=== PATIENT | male | born 2000 | race Caucasian/White ===

== ENCOUNTER 2024-11-03 19:20 | Inpatient (IN) ==
[2024-11-03 20:10] LABS: Basophils # (auto) 0.03 K/uL (0.00-0.20); Basophils % (auto) 0.2 %; Eosinophils # (auto) 0.05 K/uL (0.00-0.50); Eosinophils % (auto) 0.3 %; Hematocrit (blood only) 39.8 % (42.0-52.0); Hemoglobin 13.4 g/dl (14.0-18.0); Immature Granulocytes # (auto) 0.09 K/uL (0.01-0.20); Immature Granulocytes % (auto) 0.6 %; Lymphocytes # (auto) 1.37 K/uL (1.20-3.40); Lymphocytes % (auto) 9.1 %; Mean Corpuscular Hemoglobin 28.7 pg (25.0-34.0); Mean Corpuscular Hgb Conc 33.7 g/dL (32.0-36.0); Mean Corpuscular Volume 85.2 fL (80.0-100.0); Mean Platelet Volume 11.3 fL (9.4-12.4); Monocytes # (auto) 0.98 K/uL (0.11-0.59); Monocytes % (auto) 6.5 %; Neutrophils # (auto) 12.52 K/uL (1.40-6.50); Neutrophils % (auto) 83.3 %; Platelet Count 158 K/uL (130-400); Red Blood Count 4.67 M/uL (4.70-6.10); White Blood Count 15.04 K/ul (4.8-10.8)
[2024-11-03 20:25] LABS: Alanine Aminotransferase 10 U/L (7-52); Albumin Globulin Ratio 1.5 (0.9-2); Albumin Level 4.3 gm/dl (3.4-5.0); Alkaline Phosphatase 60 U/L (34-104); Anion Gap 8 (3-11); Aspartate Aminotransferase 15 U/L (13-39); BUN Creatinine Ratio 12.9 (10-20); Bilirubin,Total 1.1 mg/dl (0.2-1.0); Blood Urea Nitrogen 16 mg/dl (6-23); Calcium 9.3 mg/dl (8.6-10.3); Carbon Dioxide 25 mmol/L (21-32); Chloride 100 mmol/L (98-107); Globulin 2.9 gm/dl (2.5-4.0); Glucose 133 mg/dl (70-99(Fasting)); Potassium 3.4 mmol/L (3.5-5.1); Sodium 133 mmol/L (136-145); Total Protein 7.2 gm/dl (6.0-8.3)
[2024-11-03] MEDS ORDERED: VANCOMYCIN HCL 1,750 MG in SODIUM CHLORIDE 0.9% 500 ML IV ONE (21:26)
[2024-11-03] MEDS ORDERED: VANCOMYCIN CONSULT ACTIVE PRN (21:26)
[2024-11-03 21:32] LABS: Creatine Kinase 147 U/L (30-223)
[2024-11-03] MEDS: SODIUM CHLORIDE 0.9% 1,000 ML IV ONE ×2 (21:37→22:37)
[2024-11-03] MEDS: ACETAMINOPHEN 500 MG TAB PO STA (21:37)
[2024-11-03] MEDS: KETOROLAC TROMETHAMINE 15 MG/ML VIAL IV STA (21:37)
--- NOTE | 2024-11-03 21:50 | History & Physical Report ---
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 He stated he noticed bilateral lower extremity edema, redness, and pain that began yesterday at 4 PM. He is being admitted for bilateral lower extremity cellulitis and sepsis. #sepsis/cellulitis BL LE cellulitis WBC 15.04, tachycardic (126), febrile (38.4C) on admission Procal 13.70 lactate negative MAP stable trend procal Blood cultures pending Tylenol and Toradol for pain Vancomycin in ED; transition to Rocephin and daptomycin on admission - no history of MRSA, however with sepsis with cover for - no risk factors for pseudomonas coverage Fluids: Sepsis fluid bolus for ideal body weight = 2590.80 - Sepsis fluid bolus of 1L given in ED - will give additional 1.75L on admission continue gentle IVF resuscitation with NSS at 80 ml/hr overnight after fluid bolus UA and UDS ordered #electrolyte abnormalities 2/2 decreased po intake and increased activity no rhabdomyolysis (CK negative, no transaminitis) NA 133 K+ 3.4 Mag ordered on admission; will replete if low 40 mEq K+ p.o. 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 He stated he noticed bilateral lower extremity edema, redness, and pain that began yesterday at 4 PM. He is being admitted for bilateral lower extremity cellulitis and sepsis. Patient seen at bedside. He stated he was standing all weekend at [employer], barely ate or drink anything, did not wear compression stockings. Yesterday around 4 PM he noticed his bilateral lower extremities were extremely red and slightly painful. He said laying down they are not painful but he has difficulty with ambulation. He has never had anything similar. He stated none of his friends around him have anything similar. However noted in ED, roommate was also at [employer], had very similar symptoms. He stated he also has felt tired. Patient denies fever, chills, dizziness, lightheadedness, sore throat, dyspnea, dyspnea on exertion, chest pain, abdominal pain, nausea, vomiting, diarrhea. He denies significant past medical history, no asthma, DM, previous VTE. He does use nicotine products, oral pouches, would like nicotine patch. He denies daily alcohol use, only drinks alcohol on the weekends. He denies any illicit drug use. 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. He does not take any home medications regularly. He wishes to be full code. Allergies Allergy/AdvReac Type Severity Reaction Status Date / Time No Known Allergies Allergy Unverified 11/03/24 22:24 Home Medications Medication Instructions Recorded Confirmed Type No Known Home Medications 11/03/24 11/03/24 History Past Med/Surg History Problem List (Updated 11/04/24 @ 19:25 by Narda Mcrae DO) Bilateral lower leg cellulitis (Acute) Sepsis (Acute) Anemia Nicotine abuse Hypokalemia Hyponatremia Cellulitis Sepsis Peritonsillar abscess Family History (Updated 07/03/23 @ 16:07 by Cristina Naranjo MA) Grandfather Hypertension Father Allergies Social History (Updated 07/03/23 @ 16:07 by Cristina Naranjo MA) Smoking Status: Never smoker Tobacco Type: Smokeless Tobacco (Dip or Chew) Cigarettes Per Day: Nicotine Patches; Hx Alcohol Use: Yes Alcohol Intake Frequency: 2-3 x/Week Hx Substance Use: No Preferred Language: Upper Sorbian Communication Ability: Effective Vocational Counselor Required: No Beliefs That Will Affect Care: None Current Living Situation: Other Current Living Situation Comment: college roomates Other Information That Helps Us Care for You: No Feels Safe at Home: Yes Safety Concerns: Feels Safe At This Time Assistive Devices: None Review of Systems Review of Systems: see HPI Physical Exam Physical Exam: The patient is awake, alert and oriented 3, well developed and well nourished, normocephalic and atraumatic, in no acute distress. Non-toxic appearing. HEENT- EOMI, mucous membranes moist. Hearing grossly intact. Heart-normal S1 and S2. No murmurs, rubs or gallops. Lungs-clear bilaterally, no respiratory distress, no accessory muscle use. Abdomen-normal bowel sounds and soft. No ascites noted. Non-tender. Psychiatric-normal affect. Skin: BL LE with erythema from feet to knees. Warm to touch. No open wounds, no drainage. Border not well demarcated however attempted to huong with marker on admission. Results & Data Results & Data Vital Signs (Past 12 Hours) Vital Signs Temp Pulse Resp BP Pulse Ox O2 Del Method 11/03/24 20:18 113 H 11/03/24 19:42 38.4 C H 129 H 20 109/62 96 Room Air Laboratory Results reviewed CBC, CMP, Pro-True ordered mag, lactate, UA, UDS, MRSA nare swab on admission Diagnostic Findings none ordered Medications Administered ED1L NSS bolus, vancomycin IV, Tylenol 1000 Mg p.o., Toradol 15 Mg IV Admission1.75 mL NSS bolus, Rocephin 2G IV, potassium chloride 40 mEq p.o., NicoDerm patch ECG Additional Comments: ordered Code Status & VTE Plan Code Status full code VTE Prophylaxis Plan VTE Prophylaxis will be ordered: Yes Supervising Physician Co-Signing Physician Notes Attending addendum: I have physically seen this patient, have supervised the APOLINAR's activities, and agree with the H&P unless as otherwise noted. Assessment and Plan: The patient is a 24-year-old male [employer] student, who had attended following over the previous weekend. With no significant past medical history. He presents to the emergency department with bilateral lower extremity edema, redness and pain that began yesterday at about 4 PM. He denies any direct sick exposures., And has never had any previous symptomatology. He has presented to the [facility] hospitalist service for bilateral extremity cellulitis and sepsis. Bilateral lower extremity cellulitis/sepsis- Unclear etiology at this time Initially given vancomycin in ED Will place on daptomycin IV and ceftriaxone IV as noted Status post 1 L normal saline in the ED, and will give additional 1.75 mL IV fluids in the ED as noted Follow blood culture and sensitivity Follow urine culture sensitivity Following serial laboratories CBC with differential, chemistry profile Supportive treatment with Tylenol, and Toradol Pro-True 13 has noted Remaining orders and notations as noted PG Care Time/CCT Total # of Minutes Spent Total Time Spent with Patient: Total time spent is greater than 50% in coordination of care (as documented) at patient's floor/unit and/or counseling patient: Coding Level of Care Code 07922 INT INP/OBS CARE 375MIN Diagnoses Sepsis A41.9 Cellulitis L03.90 Hyponatremia E87.1 Hypokalemia E87.6 Nicotine abuse Z72.0 Anemia D64.9
[2024-11-03] MEDS: Patient's ALLERGY Info needs ENTERED STA (22:27)
[2024-11-03 22:28] LABS: Magnesium 1.9 mg/dl (1.7-2.4)
[2024-11-03] MEDS ORDERED: ONDANSETRON INJ 2 MG/ML 2 ML VIAL IV PRN (22:32)
[2024-11-03] MEDS ORDERED: KETOROLAC TROMETHAMINE 15 MG/ML VIAL IV PRN (22:32)
[2024-11-03] MEDS: cefTRIAXone SODIUM 2,000 MG/50 ML BAG IV SCH (22:45)
[2024-11-03] MEDS: SODIUM CHLORIDE 0.9% 500 ML IV ONE (22:46)
[2024-11-03] MEDS: POTASSIUM CHLORIDE CRTAB 20 MEQ TABCR PO STA (22:47)
[2024-11-03] MEDS: NICOTINE 7 MG/24 HR TDSY TD SCH (23:06)
[2024-11-03] MEDS: SODIUM CHLORIDE 0.9% 250 ML IV ONE (23:09)
[2024-11-03] MEDS: DAPTOmycin 500 MG in SYRINGE 0 ML IV SCH (23:09)
[2024-11-04] MEDS: SODIUM CHLORIDE 0.9% 1,000 ML IV SCH (01:11)
--- NOTE | 2024-11-04 01:38 | Emergency Department Note ---
Impression & Plan Sepsis, Bilateral lower leg cellulitis Admit to the [facility] ED Provider Note NAME: ARTHUR TAYLOR AGE: 24 SEX: Male INFORMANT: Patient ED PROVIDER(S): Narda Mcrae DO CHIEF COMPLAINT: Pain and swelling to both lower extremities PLAN: Disposition: admit to the [facility]. MEDICAL DECISION MAKING: This is a 24-year-old male patient brought to the emergency department by friends with swelling in both lower extremities and red streaking up the legs that is quite painful. Patient had been standing at [employer] for more than 46 hours. When he returned home, he noted that his legs were extremely red, swollen and painful. Patient became more concerned when he developed fever. By protocol, laboratory studies were drawn and revealed a white count of 15,000. The patient was tachycardic and febrile. The patient appeared quite dehydrated on physical exam. He was bolused with a liter of normal saline solution. I did add on laboratory studies to perform a septic protocol including blood cultures, lactate and procalcitonin. Patient was given Tylenol for his fever. He was medicated with IV vancomycin for significant lower extremity cellulitis with lymphangitic spread. The procalcitonin came back significantly elevated consistent with sepsis. I had already discussed the case with the [facility]ist and they had ordered 30 mL/kg crystalloid for the patient to treat for sepsis. The patient remained hemodynamically stable. Patient was given IV Toradol for the pain. Care/management discussed with: vending manager and [facility] Triage Nursing notes: reviewed and agree with them. Vital Signs: reviewed and remarkable for tachycardia and fever Differential Diagnosis: Superficial thrombophlebitis, sepsis, DVT, cellulitis Diagnostics, independently interpreted by me: ECG: Sinus tachycardia at a rate of 116 with T wave inversion in the inferior leads most likely secondary to rate. There is no obvious signs of ischemia. Cardiac Monitoring: Sinus tachycardia at a rate of 112 HPI: 24 year old Male arrives for evaluation of lower extremity pain and swelling. Patient had been standing for more than 46 hours at [place] over the weekend at the [employer]. Upon arriving at home, he noted significant redness, pain and swelling in his legs. He then developed a fever and streaking up his legs. PAST MEDICAL HISTORY: See Below, PAST SURGICAL HISTORY: See Below, SOCIAL HISTORY: See Below, HOME MEDICATIONS: See list ALLERGIES: None VITALS: See Below PHYSICAL EXAMINATION: HEENT: Head - normocephalic and atraumatic Pupils are equal, round, and reactive to light. Extraocular eye muscles are intact, and sclera are anicteric. Nose - moist nasal mucosa without discharge. Mouth - moist buccal mucosa. Oropharynx is nonerythematous and there is no tonsillar exudate or edema noted. Neck: Supple; no JVD, nuchal rigidity, cervical lymphadenopathy, or auscultated bruits. Heart: Tachycardic rate and rhythm. There is a normal S1 and S2 with no murmurs, clicks, or gallops appreciated. Lungs: Clear to auscultation bilaterally with no wheezes, rales, or rhonchi. Abdomen: Soft, completely nontender, nondistended, with good bowel sounds. There are no palpable pulsatile masses or hepatosplenomegaly. There is no guarding, rigidity, or rebound noted. Extremities: Significant cellulitis of the lower extremities with edema and lymphangitic spread up both lower legs to the mid thigh. There are easily palpable peripheral pulses. Skin: Hot and dry with good turgor and no rashes. Emergency department treatment: cosmetician, IV normal saline bolus, IV Toradol, oral Tylenol, IV vancomycin Emergency Department course: The patient was evaluated in room A-11. A complete history and physical was performed. Labs were performed by protocol. Patient was given a dose of oral Tylenol for his fever. Patient was bolused with IV normal saline solution. A septic protocol was added. Patient was given a dose of IV Toradol for his pain. Patient was given IV vancomycin for what was presumed to be significant lower extremity cellulitis. I discussed the case with the [facility] Hospitalist and they will evaluate for further care. I have personally spent greater than 50 minutes of critical care time in the direct management of this patient. This includes bedside care, interpretation of diagnostic studies, and testing, discussion with consultants, patient, and family members, and other required patient management activities. This 50 minutes is in excess of all separately billable procedures. Past Med/Surg History Problem List (Updated 11/04/24 @ 19:25 by Narda Mcrae DO) Bilateral lower leg cellulitis (Acute) Sepsis (Acute) Anemia Nicotine abuse Hypokalemia Hyponatremia Cellulitis Sepsis Peritonsillar abscess Family History (Updated 07/03/23 @ 16:07 by Cristina Naranjo MA) Grandfather Hypertension Father Allergies Social History (Updated 07/03/23 @ 16:07 by Cristina Naranjo MA) Smoking Status: Never smoker Tobacco Type: Smokeless Tobacco (Dip or Chew) Cigarettes Per Day: Nicotine Patches; Hx Alcohol Use: Yes Alcohol Intake Frequency: 2-3 x/Week Hx Substance Use: No Preferred Language: Maldivian Communication Ability: Effective Primary Care Pediatrician Required: No Beliefs That Will Affect Care: None Current Living Situation: Other Current Living Situation Comment: [facility] roomates Other Information That Helps Us Care for You: No Feels Safe at Home: Yes Safety Concerns: Feels Safe At This Time Assistive Devices: None Allergies Allergies Allergy/AdvReac Type Severity Reaction Status Date / Time No Known Allergies Allergy Unverified 11/03/24 22:24 Home Meds Home Medications Medication Instructions Recorded Confirmed No Known Home Medications 11/03/24 11/03/24 Results & Data (ED) Vital Signs Vital Signs - 24 hr 11/03/24 19:42 11/03/24 20:17 11/03/24 20:18 Temperature 38.4 C H Temperature Source Temporal Artery Scan Pulse Rate 129 H 113 H Respiratory Rate 20 Respiratory Effort / Characteristics Non-Labored Respiratory Depth Normal Blood Pressure 109/62 133/80 Blood Pressure Mean 77 91 Pulse Oximetry 96 Oxygen Delivery Method Room Air Sepsis Recent Fever Within 48 Hours No Sepsis New/Unexplained Change in Mental Status No Sepsis Action Taken by Nursing Physician Notified 11/03/24 20:30 11/03/24 20:42 11/03/24 20:57 Temperature Temperature Source Pulse Rate 111 H 105 H Respiratory Rate 33 H 21 Respiratory Effort / Characteristics Respiratory Depth Blood Pressure 122/73 Blood Pressure Mean 85 Pulse Oximetry Oxygen Delivery Method Sepsis Recent Fever Within 48 Hours Sepsis New/Unexplained Change in Mental Status Sepsis Action Taken by Nursing 11/03/24 21:30 11/03/24 21:42 11/03/24 21:45 Temperature Temperature Source Pulse Rate 98 H 98 H Respiratory Rate 24 24 Respiratory Effort / Characteristics Respiratory Depth Blood Pressure 117/62 Blood Pressure Mean 69 Pulse Oximetry Oxygen Delivery Method Sepsis Recent Fever Within 48 Hours Sepsis New/Unexplained Change in Mental Status Sepsis Action Taken by Nursing 11/03/24 22:01 Temperature Temperature Source Pulse Rate Respiratory Rate Respiratory Effort / Characteristics Respiratory Depth Blood Pressure 148/68 H Blood Pressure Mean 94 Pulse Oximetry Oxygen Delivery Method Sepsis Recent Fever Within 48 Hours Sepsis New/Unexplained Change in Mental Status Sepsis Action Taken by Nursing Laboratory Data 11/04/24 03:27 11/04/24 03:27 Lab Results 11/03/24 Range/Units 19:55 WBC 15.04 H (4.8-10.8) K/ul RBC 4.67 L (4.70-6.10) M/uL Hgb 13.4 L (14.0-18.0) g/dl Hct 39.8 L (42.0-52.0) % MCV 85.2 (80.0-100.0) fL MCH 28.7 (25.0-34.0) pg MCHC 33.7 (32.0-36.0) g/dL RDW Std Deviation 40.0 (36.4-46.3) fL RDW Coeff of Lucy 13.0 (11.5-14.5) % Plt Count 158 (130-400) K/uL MPV 11.3 (9.4-12.4) fL Immature Gran % (Auto) 0.6 % Neut % (Auto) 83.3 % Lymph % (Auto) 9.1 % [place] % (Auto) 6.5 % Eos % (Auto) 0.3 % Baso % (Auto) 0.2 % Neut # (Auto) 12.52 H (1.40-6.50) K/uL Lymph # (Auto) 1.37 (1.20-3.40) K/uL [place] # (Auto) 0.98 H (0.11-0.59) K/uL Eos # (Auto) 0.05 (0.00-0.50) K/uL Baso # (Auto) 0.03 (0.00-0.20) K/uL Immature Gran # (Auto) 0.09 (0.01-0.20) K/uL Sodium 133 L (136-145) mmol/L Potassium 3.4 L (3.5-5.1) mmol/L Chloride 100 (98-107) mmol/L Carbon Dioxide 25 (21-32) mmol/L Anion Gap 8 (3-11) BUN 16 (6-23) mg/dl Creatinine 1.24 (0.6-1.4) mg/dl Est Cr Clr Drug Dosing Not Reportable eGFR 84.30 BUN/Creatinine Ratio 12.9 (10-20) Glucose 133 H (70-99(Fasting)) mg/dl Calcium 9.3 (8.6-10.3) mg/dl Magnesium 1.9 (1.7-2.4) mg/dl Total Bilirubin 1.1 H (0.2-1.0) mg/dl AST 15 (13-39) U/L ALT 10 (7-52) U/L Alkaline Phosphatase 60 (34-104) U/L Total Creatine Kinase 147 (30-223) U/L Total Protein 7.2 (6.0-8.3) gm/dl Albumin 4.3 (3.4-5.0) gm/dl Globulin 2.9 (2.5-4.0) gm/dl Albumin/Globulin Ratio 1.5 (0.9-2) Procalcitonin 13.70 H (0-0.5) ng/ml Administered Medications Acetaminophen (Acetaminophen 325 Mg Tab) 650 mg PO Q4H PRN PRN Reason: Pain or Fever Stop: 12/03/24 22:31 Last Admin: 11/04/24 08:45 Dose: 650 mg Documented By: CHINO Cefazolin Sodium (Ancef 1000mg) 1,000 mg in 7.5 mls @ 2.5 mls/min IV Q8H [facility] Stop: 11/11/24 15:59 Last Admin: 11/04/24 16:39 Dose: 2.5 mls/min Documented By: JAKY Miscellaneous (Remove Nicoderm Patch) 1 each N/A DAILY@0859 [facility] Stop: 12/04/24 08:58 Last Admin: 11/04/24 08:42 Dose: 1 each Documented By: CHINO Nicotine (Nicotine 7 Mg/24 Hr Tdsy) 1 patch TD DAILY [facility] Stop: 12/03/24 22:09 Last Admin: 11/04/24 08:42 Dose: 1 patch Documented By: Admin: 11/03/24 23:06 Dose: 1 patch Documented By: MATI Discontinued Medications Acetaminophen (Acetaminophen 500 Mg Tab) 1,000 mg PO NOW STA Stop: 11/03/24 21:16 Last Admin: 11/03/24 21:37 Dose: 1,000 mg Documented By: MATI Sodium Chloride (Nss) 1,000 mls @ 999 mls/hr IV .Q1H1M ONE Stop: 11/03/24 22:15 Last Infusion: 11/03/24 22:27 Dose: Infused Documented By: Admin: 11/03/24 21:37 Dose: 999 mls/hr Documented By: MATI Sodium Chloride (Nss) 1,000 mls @ 999 mls/hr IV .Q1H1M ONE Stop: 11/03/24 23:07 Last Infusion: 11/04/24 00:45 Dose: Infused Documented By: Admin: 11/03/24 22:37 Dose: 999 mls/hr Documented By: MATI Sodium Chloride (Nss) 500 mls @ 999 mls/hr IV .Q31M ONE Stop: 11/03/24 22:37 Last Infusion: 11/03/24 23:14 Dose: Infused Documented By: Admin: 11/03/24 22:46 Dose: 999 mls/hr Documented By: MATI Ceftriaxone Sodium (Rocephin) 2,000 mg in 50 mls @ 100 mls/hr IV Q24H [facility] Stop: 11/10/24 22:14 Last Infusion: 11/03/24 23:14 Dose: Infused Documented By: Admin: 11/03/24 22:45 Dose: 100 mls/hr Documented By: MATI Sodium Chloride (Nss) 250 mls @ 999 mls/hr IV .Q16M ONE Stop: 11/03/24 22:35 Last Infusion: 11/03/24 23:34 Dose: Infused Documented By: Admin: 11/03/24 23:09 Dose: 999 mls/hr Documented By: MATI Daptomycin 500 mg/ Syringe 10 mls @ 5 mls/min IV Q24H [facility]; Protocol Stop: 11/10/24 22:31 Last Admin: 11/03/24 23:09 Dose: 5 mls/min Documented By: MATI Sodium Chloride (Nss) 1,000 mls @ 80 mls/hr IV .[id number] [facility] Stop: 11/04/24 12:59 Last Infusion: 11/04/24 13:48 Dose: Infused Documented By: Lisha Admin: 11/04/24 01:11 Dose: 80 mls/hr Documented By: KMS Ketorolac Tromethamine (Ketorolac Tromethamine 15 Mg/Ml Vial) 15 mg IV NOW STA Stop: 11/03/24 21:16 Last Admin: 11/03/24 21:37 Dose: 15 mg Documented By: MATI Miscellaneous Information (Patient's Allergy Info Needs Entered) 1 each N/A NOW STA Stop: 11/03/24 22:15 Last Admin: 11/03/24 22:27 Dose: 1 each Documented By: MATI Potassium Chloride (Potassium Chloride Crtab 20 Meq Tabcr) 40 meq PO NOW STA Stop: 11/03/24 22:08 Last Admin: 11/03/24 22:47 Dose: 40 meq Documented By: MATI Discharge Plan Visit Data Chief Complaint: Swelling/Edema to Extremity Stated Complaint: SWELLING IN LEGS ED Provider: Narda Mcrae Discharge Problem: Sepsis, Bilateral lower leg cellulitis Patient Disposition: Admitted As Inpatient Discharge Instructions Interventions: ED Discharge Assessment Last Done: 11/03/24 22:33
[2024-11-04 03:48] LABS: Basophils # (auto) 0.02 K/uL (0.00-0.20); Basophils % (auto) 0.2 %; Eosinophils # (auto) 0.15 K/uL (0.00-0.50); Eosinophils % (auto) 1.8 %; Hematocrit (blood only) 34.8 % (42.0-52.0); Hemoglobin 11.4 g/dl (14.0-18.0); Immature Granulocytes # (auto) 0.04 K/uL (0.01-0.20); Immature Granulocytes % (auto) 0.5 %; Lymphocytes # (auto) 1.33 K/uL (1.20-3.40); Lymphocytes % (auto) 15.6 %; Mean Corpuscular Hemoglobin 28.8 pg (25.0-34.0); Mean Corpuscular Hgb Conc 32.8 g/dL (32.0-36.0); Mean Corpuscular Volume 87.9 fL (80.0-100.0); Mean Platelet Volume 11.1 fL (9.4-12.4); Monocytes # (auto) 0.68 K/uL (0.11-0.59); Neutrophils % (auto) 73.9 %; Platelet Count 125 K/uL (130-400); RDW Coefficient of Variation 12.9 % (11.5-14.5); RDW Standard Deviation 41.9 fL (36.4-46.3); Red Blood Count 3.96 M/uL (4.70-6.10); White Blood Count 8.52 K/ul (4.8-10.8)
[2024-11-04 04:04] LABS: Albumin Globulin Ratio 1.2 (0.9-2); Albumin Level 3.3 gm/dl (3.4-5.0); BUN Creatinine Ratio 12.9 (10-20); Bilirubin,Total 0.6 mg/dl (0.2-1.0); Calcium 7.8 mg/dl (8.6-10.3); Creatinine Clr Calc Pharmacy 116.1 ml/min; Globulin 2.8 gm/dl (2.5-4.0); Magnesium 2.1 mg/dl (1.7-2.4); Potassium 3.8 mmol/L (3.5-5.1); Total Protein 6.1 gm/dl (6.0-8.3)
--- NOTE | 2024-11-04 06:48 | Hospitalist Progress Note ---
Date of Service November 04, 2024 Assessment & Plan (1) Anemia: (2) Nicotine abuse: (3) Hypokalemia: (4) Hyponatremia: (5) Cellulitis: (6) Sepsis: (7) Peritonsillar abscess: Plan (1) Cellulitis -WBC 15.04 >8.52 - Febrile (38.4) on admission - Procal 13.70 >11.80; Trend Procal -Lactate negative -MAP stable -Blood cultures pending -Tylenol and Toradol for pain -Vancomycin in ED; -Stop Ceftriaxone and Daptomycin -Start Cefazolin for Gram Positive Coverage -Hopefully home tomorrow. Will Switch IV Cefazolin to PO. -US Venous B/L Lower Extremity: Negative for Venous Thrombosis (2) Hyponatremia - Resolved - 133>137 (3) Hypokalemia - Resolved -3.4>3.8 (4) Nicotine use -oral zyn pouches daily -nicotine patch ordered (5) Anemia - Hgb: 13.4>11.4 VTE ppx: SCDs Diet: regular Dispo: Med/ Surg with Sepsis Admission and Anticipated Discharge Date Admission Date: November 03, 2024 Supervising Physician Co-Signing Physician Notes I personally examined the patient and verified all bai points of history and exam, discussed case, and agree with decision making with Dr Hook feeling better starting to be able to bear weight vitals noted nad heent nc at mmm breathing unlabored no accessory muscles good effort skin with resolving erythema small areas of bruising where it appears erythema was most dense, minimally tender significantly regressed compared to outlined areas cellulitis w sepsis present on admission - interestingly does appear to have had b/l LE cellulitis - fortunately both sepsis/cellulitis appear resolving quickly. was not severe sepsis/septic shock, MRSA nares negative, no significant risks for resistant bacteria -> narrow abx to 1st gen cephalosporin anticipate ongoing improvement, hopefully home tomorrow Ayanna Serra is a 24 Y O Male previously healthy boy presented to ER yesterday with Bilateral lower extremity edema, redness and pain that began 2 days ago. He was standing at [place] all weekend, barely ate or drink anything, didnot wear compression stockings. He was admitted for bilateral lower extremity cellulitis with sepsis. Ongoing Symptoms: He mentioned pain in bilateral legs is better than yesterday. Patient not able to walk due to pain. Denies chest pain, difficulty in breathing New concerns: No any Review of Systems Review of Systems: As per HPI Physical Exam Constitutional: WD/WN, vitals as above well developed; no acute distress Eyes: PERRL, conjunctivae normal, anicteric sclerae ENMT: external ear and nose normal, oropharynx normal Ears: no hearing impairment Neck: trachea midline, no thyromegaly trachea midline Respiratory: normal respiratory effort, lungs clear to auscultation normal respiratory effort and + respiratory distress; no labored breathing and no retractions Auscultation: lungs clear to auscultation bilaterally Cardiovascular: RRR, no murmur, no edema Rate/Rhythm: regular rate and regular rhythm Chest (Breasts): normal inspection/palpation of breasts Chest: normal inspection of chest Musculoskeletal: Erythema and swelling from knee to feet. Warm to touch. No open wounds, no drainage. Border not well demarcated Results & Data Results & Data Vital Signs (Past 12 Hours) Vital Signs Temp Pulse Pulse Resp BP BP Pulse Ox 11/04/24 06:00 77 11/04/24 04:16 36.9 C 77 18 113/66 96 11/04/24 03:42 71 14 96 11/04/24 03:36 72 21 96 11/04/24 03:34 36.4 C 11/04/24 03:21 80 21 11/04/24 03:12 70 17 11/04/24 03:06 72 17 11/04/24 03:00 109/64 11/04/24 02:48 77 17 11/04/24 02:42 76 15 11/04/24 01:57 81 20 97 11/04/24 01:26 78 17 124/69 98 11/04/24 01:00 71 24 124/69 11/04/24 00:03 74 15 11/04/24 00:00 118/59 L 11/03/24 23:30 80 16 11/03/24 23:18 11/03/24 23:12 76 21 11/03/24 23:00 127/65 11/03/24 22:55 90 11/03/24 22:39 95 H 22 11/03/24 22:31 108/70 11/03/24 22:18 93 H 28 H 11/03/24 22:01 148/68 H 11/03/24 21:45 98 H 24 11/03/24 21:42 98 H 24 11/03/24 21:30 117/62 11/03/24 20:57 105 H 21 11/03/24 20:42 111 H 33 H 11/03/24 20:30 122/73 11/03/24 20:18 113 H 11/03/24 20:17 133/80 11/03/24 19:42 38.4 C H 129 H 20 109/62 96 Pulse Ox O2 Del Method O2 Del Method 11/04/24 06:00 11/04/24 04:16 Room Air 11/04/24 03:42 Room Air 11/04/24 03:36 11/04/24 03:34 11/04/24 03:21 11/04/24 03:12 11/04/24 03:06 11/04/24 03:00 11/04/24 02:48 11/04/24 02:42 11/04/24 01:57 Room Air, Other 11/04/24 01:26 Room Air 11/04/24 01:00 11/04/24 00:03 11/04/24 00:00 11/03/24 23:30 11/03/24 23:18 97 Room Air 11/03/24 23:12 11/03/24 23:00 11/03/24 22:55 11/03/24 22:39 11/03/24 22:31 11/03/24 22:18 11/03/24 22:01 11/03/24 21:45 11/03/24 21:42 11/03/24 21:30 11/03/24 20:57 11/03/24 20:42 11/03/24 20:30 11/03/24 20:18 11/03/24 20:17 11/03/24 19:42 Room Air
[2024-11-04] MEDS: ACETAMINOPHEN 325 MG TAB PO PRN (08:45)
[2024-11-04 11:35] LABS: Appearance Urine Clear (Clear); Bacteria Urine Automated None Seen (None Seen); Bilirubin Urine Negative (Negative); Blood Urine Negative (Negative); Cast Urine Automated 0-2 /lpf (0-2); Color Urine Dark Yellow; Epithelial Cell Urine Auto 0-2 /hpf (0-2); Glucose Urine UA Negative (Negative); Ketones Urine 2+ (Negative); Leukocyte Esterase Urine Negative (Negative); Nitrite Urine Negative (Negative); Protein Urine 1+ (Negative); RBC Urine Automated 0-2 /hpf (0-2); Specific Gravity Urine 1.034 (1.000-1.030); Urobilinogen Urine Negative (Negative); WBC Urine Automated 0-5 /hpf (0-5)
[2024-11-04 13:32] LABS: Amphetamines+Metham, Urine Neg (Neg); Barbiturates, Urine Neg (Neg); Benzodiazepine, Urine Neg (Neg); Cocaine, Urine Neg (Neg); Fentanyl, Urine Neg (Neg); MDMA (Ecstacy), Urine Neg (Neg); Marijuana, Urine Neg (Neg); Methadone, Urine Neg (Neg); Opiate, Urine Neg (Neg); Phencyclidine, Urine Neg (Neg)
--- NOTE | 2024-11-04 14:52 | Ultrasound Report ---
BILATERAL LOWER EXTREMITY VENOUS DOPPLER HISTORY: pain, swelling, of BL leg COMPARISON STUDY: None FINDINGS: No evidence of DVT seen at bilateral lower extremity. IMPRESSION: No DVT seen. ACT 112: Negative or not required by law. Electronically signed by: Hitesh Luke M.D. 11/04/2024 2:51 PM
--- NOTE | 2024-11-04 15:46 | Electrocardiogram Report ---
Test Reason : Blood Pressure : */* mmHG Vent. Rate : 116 BPM Atrial Rate : 116 BPM P-R Int : 130 ms QRS Dur : 84 ms QT Int : 312 ms P-R-T Axes : 77 75 -3 degrees QTcB Int : 433 ms Sinus tachycardia T wave abnormality, consider inferior ischemia Abnormal ECG No previous ECGs available Confirmed by José Antonio Blevins ([id number]) on 11/04/2024 3:46:26 PM Referred By: REFERRED SELF Confirmed By: José Antonio Blevins
[2024-11-04] MEDS: ceFAZolin 1000MG 1,000 MG/7.5 ML SYR IV SCH (16:39)
--- NOTE | 2024-11-04 17:38 | Billing Data ---
Date of Service November 04, 2024 Coding Level of Care Code 23234 SUB INP/OBS CARE MIN
[2024-11-05 06:51] LABS: Basophils # (auto) 0.01 K/uL (0.00-0.20); Basophils % (auto) 0.2 %; Eosinophils # (auto) 0.22 K/uL (0.00-0.50); Eosinophils % (auto) 3.8 %; Hematocrit (blood only) 33.4 % (42.0-52.0); Hemoglobin 11.3 g/dl (14.0-18.0); Immature Granulocytes # (auto) 0.02 K/uL (0.01-0.20); Immature Granulocytes % (auto) 0.3 %; Lymphocytes # (auto) 1.56 K/uL (1.20-3.40); Lymphocytes % (auto) 27.1 %; Mean Corpuscular Hemoglobin 29.2 pg (25.0-34.0); Mean Corpuscular Hgb Conc 33.8 g/dL (32.0-36.0); Mean Corpuscular Volume 86.3 fL (80.0-100.0); Mean Platelet Volume 11.5 fL (9.4-12.4); Monocytes # (auto) 0.55 K/uL (0.11-0.59); Monocytes % (auto) 9.5 %; Neutrophils % (auto) 59.1 %; Platelet Count 146 K/uL (130-400); RDW Standard Deviation 40.8 fL (36.4-46.3); Red Blood Count 3.87 M/uL (4.70-6.10); White Blood Count 5.76 K/ul (4.8-10.8)
[2024-11-05 07:14] LABS: Albumin Globulin Ratio 1.2 (0.9-2); Albumin Level 3.5 gm/dl (3.4-5.0); BUN Creatinine Ratio 8.3 (10-20); Bilirubin,Total 0.5 mg/dl (0.2-1.0); Calcium 8.4 mg/dl (8.6-10.3); Creatinine Clr Calc Pharmacy 140.3 ml/min; Globulin 2.9 gm/dl (2.5-4.0); Potassium 3.8 mmol/L (3.5-5.1); Total Protein 6.4 gm/dl (6.0-8.3)
[2024-11-05 07:50] VITALS: RESP 18
--- NOTE | 2024-11-05 08:55 | Discharge Summary ---
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 He stated he noticed bilateral lower extremity edema, redness, and pain that began yesterday at 4 PM. He is being admitted for bilateral lower extremity cellulitis and sepsis. Patient seen at bedside. He stated he was standing all weekend at [employer], barely ate or drink anything, did not wear compression stockings. Yesterday around 4 PM he noticed his bilateral lower extremities were extremely red and slightly painful. He said laying down they are not painful but he has difficulty with ambulation. He has never had anything similar. He stated none of his friends around him have anything similar. However noted in ED, roommate was also at [employer], had very similar symptoms. He stated he also has felt tired. Patient denies fever, chills, dizziness, lightheadedness, sore throat, dyspnea, dyspnea on exertion, chest pain, abdominal pain, nausea, vomiting, diarrhea. He denies significant past medical history, no asthma, DM, previous VTE. He does use nicotine products, oral pouches, would like nicotine patch. He denies daily alcohol use, only drinks alcohol on the weekends. He denies any illicit drug use. 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 He does not take any home medications regularly. He wishes to be full code. Admission Exam Per Admitting Provider HEENT: Head - normocephalic and atraumatic Pupils are equal, round, and reactive to light. Extraocular eye muscles are intact, and sclera are anicteric. Nose - moist nasal mucosa without discharge. Mouth - moist buccal mucosa. Oropharynx is nonerythematous and there is no tonsillar exudate or edema noted. Neck: Supple; no JVD, nuchal rigidity, cervical lymphadenopathy, or auscultated bruits. Heart: Tachycardic rate and rhythm. There is a normal S1 and S2 with no murmurs, clicks, or gallops appreciated. Lungs: Clear to auscultation bilaterally with no wheezes, rales, or rhonchi. Abdomen: Soft, completely nontender, nondistended, with good bowel sounds. There are no palpable pulsatile masses or hepatosplenomegaly. There is no guarding, rigidity, or rebound noted. Extremities: Significant cellulitis of the lower extremities with edema and lymphangitic spread up both lower legs to the mid thigh. There are easily palpable peripheral pulses. Skin: Hot and dry with good turgor and no rashes. Principal Diagnosis 1. Cellulitis with sepsis 2. Hyponatremia(Resolved) 3. Hypokalemia(Resolved) 4. Anemia Discharge Exam Constitutional: WD/WN, vitals as above well developed; no acute distress Eyes: PERRL, conjunctivae normal, anicteric sclerae ENMT: external ear and nose normal, oropharynx normal Ears: no hearing impairment Neck: trachea midline, no thyromegaly trachea midline Respiratory: normal respiratory effort, lungs clear to auscultation normal respiratory effort and + respiratory distress; no labored breathing and no retractions Auscultation: lungs clear to auscultation bilaterally Cardiovascular: RRR, no murmur, no edema Rate/Rhythm: regular rate and regular rhythm Chest (Breasts): normal inspection/palpation of breasts Chest: normal inspection of chest Musculoskeletal: Erythema and swelling from knee to feet. Warm to touch. No open wounds, no drainage. Border not well demarcated Discharge Data Allergies Allergy/AdvReac Type Severity Reaction Status Date / Time No Known Allergies Allergy Unverified 11/03/24 22:24 Consultations 11/03/24 21:44 ED Decision to Admit Stat Ordered Studies 11/04/24 13:54 US leg [US venous doppler LE ] Stat Hospital Course (1) Bilateral lower leg cellulitis: (2) Sepsis: (3) Cellulitis: (4) Sepsis: (5) Hyponatremia: (6) Nicotine abuse: (7) Hypokalemia: (8) Anemia: Plan (1) Cellulitis with Sepsis -WBC 15.04 >8.52>5.76 - Febrile (38.4) on admission - Procal 13.70 >11.80; Trend Procal -Lactate negative -MAP stable -Blood cultures no growth of organisms after 24 hour -Tylenol and Toradol for pain -Vancomycin in ED; -Stop Ceftriaxone and Daptomycin --US Venous B/L Lower Extremity: Negative for Venous Thrombosis -Start Cefazolin for Gram Positive Coverage - Discharge today with Keflex 500 mg PO q6hr for 7 days (2) Hyponatremia - Resolved - 133>137 (3) Hypokalemia - Resolved -3.4>3.8 (5) Anemia - Hgb: 13.4>11.4 Total Time Total Time Spent Total Time Spent (In Minutes): 50% of patient care Discharge Plan Discharge Items Patient Disposition: Home - Self-Care Reason For Visit: SEPSIS, CELLULITIS Discharge Diagnosis: 1. Cellulitis with sepsis 2. Hyponatremia(Resolved) 3. Hypokalemia(Resolved) 4. Anemia Activity: Per Instructions section Non-emergency contact: Primary Care Provider Call non-emergency contact if: you have any medication questions, your symptoms worsen, your pain is not controlled, your pain is worsening, your pain is unusual for you and your pain is concerning for you Follow-up/Referrals: [facility] [Primary Care Provider] - Diet: Regular Addtl Attending Provider Instructions: You presented to ER due to Bilateral leg swelling and erythema. You had Cellulitis of B/L knee with Sepsis. You were started on antibiotics and analgesics. You were showing improvement clinically while at hospital. Follow-up appointments: Make a follow-up appointment with your PCP within the next week. It is very important that you follow up with them shortly after discharge from the hospital. Your medication list has been reviewed and reconciled upon discharge to ensure accuracy and continuity of care. An updated list of all your medications is included with your hospital discharge paperwork. Please review this list closely, and make note of any changes. We sent a new antibiotics called Keflex to your pharmacy. Take Keflex 500mg every 6 hour for 7 days Take Tylenol and Ibuprofen for pain as needed. Take your medications as instructed; do not skip a dose of your medicines. Make sure all of your doctors know every medicine you are taking (including quit-mli-hucptkr medicines, vitamins, and supplements). Call your primary care provider before taking any new medicines (including overthe- counter medicines, vitamins, and supplements), because some of these may interact with your current medications, or may make your symptoms worse. Tell your primary care provider if you cannot afford your medications. CONTACT YOUR PRIMARY CARE PROVIDER if you experience any of the following: Increase pain, swelling and erythema Difficulty following your treatment plan, or difficulty taking medications Thank you for allowing us to participate in your care. . Pending Studies at Discharge: No Stand-Alone Forms: [facility] [email or web address], Smoking Cessation Medications and DC Order Prescriptions: New cephalexin 500 mg tablet 500 mg PO TID 7 Days Qty: 21 0RF Discharge Orders: Discharge Order (Routine); Ordered 11/05/24 Ordered By: Steven Sanches/Other Patient Handouts: Cellulitis Dc Admission Data Admit Date/Time: 11/03/24 22:15 Attending Provider: Christopher Atkins Admit Provider: Angel Barrera Primary Care Provider: [facility] Other Providers: Angel Barrera Other Interventions: Discharge Summary Assessment (RN) Last Done: 11/05/24 12:01 Supervising Physician Co-Signing Physician Notes I personally examined the patient and verified all bai points of history and exam, discussed case, and agree with decision making with Dr Hook feeling better feeling up to going home vitals noted nad heent nc at mmm breathing unlabored no accessory muscles good effort skin with resolving erythema minimally tender even better than yesterda cellulitis w sepsis present on admission - interestingly does appear to have had b/l LE cellulitis - fortunately both sepsis/cellulitis appear resolving quickly. was not severe sepsis/septic shock, MRSA nares negative, no significant risks for resistant bacteria -> narrowed abx to 1st gen cephalosporin - stable for home on keflex.
[2024-11-05 11:27] VITALS: BP 118/68; TEMP 97.9; O2SAT 99
[2024-11-05 12:04] VITALS: PULSE 80
--- NOTE | 2024-11-05 16:21 | Billing Data ---
Date of Service November 05, 2024 Coding Level of Care Code 18162 IN/OBS DISCH 30 MIN/LESS
== END 2024-11-05 12:18 | disposition home or self-care (01) | DRG 872 ==
LOC: ED 19:20 → SUATTDRO 22:15 → EDINP 22:15 → 2W 11-04 04:18